=== PATIENT | female | born 1985 | race Caucasian/White ===

== ENCOUNTER 2024-02-14 15:16 | Inpatient (IN) | payer BC ==
[~2024-02-14] VITALS: Ht 167.6 cm; Wt 64.0 kg
[2024-02-14] MEDS: normal saline 1000ml 1,000 ML IV SCH (17:10)
[2024-02-14] MEDS ORDERED: magnesium sulf-water 4G/100mL 100 ML IV PRN (17:10)
[2024-02-14] MEDS ORDERED: potassium Cl 40MEQ/1/2NS 520ml 520 ML IV PRN (17:10)
[2024-02-14] MEDS ORDERED: potassium Cl 20 mEq SR tablet PO PRN ×2 (17:10)
[2024-02-14] MEDS ORDERED: ondansetron/PF 4mg/2ml inj IV PRN (17:10)
[2024-02-14] MEDS ORDERED: acetaminophen 325mg tablet PO PRN (17:10)
[2024-02-14] MEDS ORDERED: magnesium Cl slow-release 64mg tablet PO PRN (17:10)
[2024-02-14] MEDS ORDERED: magnesium sulf-water 2g/50mL 50 ML IV PRN (17:10)
[2024-02-14] MEDS ORDERED: HYDROcodone/acetaminophen 5mg/325mg tablet PO PRN (17:10)
[2024-02-14] MEDS: K and/or MAG REPLACEMENT MC SCH (19:10)
[2024-02-14] MEDS ORDERED: NO HOME MEDS (20:47)
[2024-02-15 03:33] LABS: BASOPHILS % (AUTO) 0.4 % (0-1); EOSINOPHILS # (AUTO) 0.2 X10'3 (0-0.9); EOSINOPHILS % (AUTO) 3.1 % (0-6); HEMATOCRIT 39.9 % (35.0-45.0); HEMOGLOBIN 13.2 g/dl (12.0-16.0); LYMPHOCYTES # (AUTO) 2.4 X10'3 (1.1-4.8); LYMPHOCYTES % (AUTO) 33.3 % (21-51); MEAN CORPUSCULAR HEMOGLOBIN 31.2 PG (27.0-31.0); MEAN CORPUSCULAR VOLUME 94.7 FL (78-98); MEAN PLATELET VOLUME 7.3 FL (7.4-10.4); MONOCYTES # (AUTO) 0.5 X10'3 (0-0.9); MONOCYTES % (AUTO) 6.6 % (2-12); NEUTROPHILS # (AUTO) 4.2 X10'3 (1.8-7.7); NEUTROPHILS % (AUTO) 56.6 % (42-75); PLATELET COUNT 274 X10'3 (140-440); RED BLOOD COUNT 4.21 X10'6 (4.20-5.60); RED CELL DISTRIBUTION WIDTH 13.6 % (11.5-14.5); WHITE BLOOD COUNT 7.4 X10'3 (4.5-11.0)
[2024-02-15 03:55] LABS: ALBUMIN 3.4 G/DL (3.4-5.0); ALBUMIN/GLOBULIN RATIO 0.9 (1.1-1.5); ALKALINE PHOSPHATASE 122 IU/L (46-116); ANION GAP 7 (8-16); ASPARTATE AMINO TRANSFERASE 851 U/L (10-37); BILIRUBIN,TOTAL 2.1 MG/DL (0.1-1.0); BLOOD UREA NITROGEN 15 MG/DL (7-18); BUN/CREATININE RATIO 21.1 (10.0-20.0); CALCIUM 8.2 MG/DL (8.5-10.1); CHLORIDE 106 MMOL/L (99-107); CREATININE 0.71 MG/DL (0.40-0.90); GLUCOSE 79 MG/DL (70-104); MAGNESIUM 2.2 MG/DL (1.5-2.4); POTASSIUM 3.9 MMOL/L (3.5-5.1); SODIUM 140 MMOL/L (135-145); TOTAL CARBON DIOXIDE 26.8 MMOL/L (24-32); TOTAL PROTEIN 7.2 G/DL (6.4-8.2); eCRCL 102 ML/MIN; eGFR > 90 ML/MIN
[2024-02-15 03:56] LABS: ALANINE AMINOTRANSFERASE 1485 U/L (12-78)
[2024-02-15 07:20] VITALS: BP 109/72; PULSE 60; RESP 19; TEMP 98.3; O2SAT 98
[2024-02-15 08:00] VITALS: RESP 16; O2SAT 99
[2024-02-15 10:00] VITALS: BP 109/75; PULSE 73; RESP 16; TEMP 98.5; O2SAT 99
[2024-02-15] MEDS: morphine 2 MG/ML inj. syringe IV PRN (11:34)
[2024-02-15 18:00] VITALS: BP 112/72; PULSE 74; RESP 16; TEMP 98.1; O2SAT 100
[2024-02-15 20:00] VITALS: RESP 16; O2SAT 100
[2024-02-15] MEDS ORDERED: ibuprofen 200mg tablet PO PRN (20:25)
[2024-02-15 22:00] VITALS: BP 99/60; PULSE 69; RESP 16; TEMP 97.5; O2SAT 99
[2024-02-15] MEDS: diatr meglu/diatrizoate 30ml oral sol.-(3 dose) bottle PO SCH (22:09)
[2024-02-16] VITALS (16 sets, daily range): BP systolic 99–135; BP diastolic 60–99; PULSE 64–87; RESP 14–20; TEMP 97.1–98.4; O2SAT 66–100
[2024-02-16 07:52] LABS: ALANINE AMINOTRANSFERASE 836 U/L (12-78); ALBUMIN 3.3 G/DL (3.4-5.0); ALBUMIN/GLOBULIN RATIO 0.9 (1.1-1.5); ALKALINE PHOSPHATASE 100 IU/L (46-116); ASPARTATE AMINO TRANSFERASE 253 U/L (10-37); BILIRUBIN,DIRECT 0.3 MG/DL (0-0.3); BILIRUBIN,TOTAL 1.2 MG/DL (0.1-1.0); TOTAL PROTEIN 7.1 G/DL (6.4-8.2)
[2024-02-16] MEDS ORDERED: iohexol 300mg/ml 100ml inj. ONE (09:50)
[2024-02-16] MEDS ORDERED: BUPIVAcaine 2.5mg/ml inj 50ml vial (contains preservative) ONE (18:33)
[2024-02-16] MEDS ORDERED: dextrose 50%-water 50ml dispensing syringe IV PRN (19:20)
[2024-02-16] MEDS: dextrose 50%-water 50ml dispensing syringe IV PRN (19:26)
[2024-02-16] MEDS ORDERED: morphine 2 MG/ML inj. syringe IV PRN (20:45)
[2024-02-16] MEDS ORDERED: ondansetron/PF 4mg/2ml inj IV PRN ×2 (20:45→22:05)
[2024-02-16] MEDS: ringers solution, lacted 1,000 ML IV SCH (20:45)
[2024-02-16] MEDS ORDERED: morphine 4 MG/ML inj SYRINge IV PRN (20:45)
[2024-02-16] MEDS ORDERED: meperidine/PF 25mg/ml syringe IV PRN (20:45)
[2024-02-16] MEDS ORDERED: labetalol 20mg/4ml (5mg/ml) syringe IV PRN (20:45)
[2024-02-16] MEDS ORDERED: proCHLORperazine 10 MG/2 ml inj IV PRN (20:45)
[2024-02-16] MEDS ORDERED: ceFAZolin 2gm in dextrose, iso 2,000 MG/50 ML BAG IV ONE (20:53)
[2024-02-16] MEDS ORDERED: fentaNYL/PF 50MCG/1 ML 2ML syringe ONE (20:57)
[2024-02-16] MEDS ORDERED: midazolam 1 mg/ML 2ml injection ONE (20:57)
[2024-02-16] MEDS ORDERED: propofol inj 20 ML IV ONE (21:00)
[2024-02-16] MEDS ORDERED: rocuronium 10mg/ml inj IV ONE (21:07)
[2024-02-16] MEDS ORDERED: dexamethasone sod phosphate 4mg/ml inj. ONE (21:12)
[2024-02-16] MEDS ORDERED: ondansetron/PF 4mg/2ml inj ONE (21:42)
[2024-02-16] MEDS ORDERED: acetaminophen 1,000mg/100ml IV 100 ML IV ONE (21:43)
[2024-02-16] MEDS: BUPIVAcaine 2.5mg/ml inj 50ml vial (contains preservative) IJ ONE (21:53)
[2024-02-16] MEDS ORDERED: sugammadex 200mg/2ml injection IV ONE (21:54)
[2024-02-16] MEDS ORDERED: naloxone 0.4 mg/ml inj IV PRN (22:05)
[2024-02-16] MEDS: meperidine/PF 25mg/ml syringe IV PRN ×2 (22:12→22:42)
[2024-02-16] MEDS: potassium CL 20mEq in D5-1/2NS 1,000 ML IV SCH (22:34)
[2024-02-16] MEDS: ketorolac trometh 15mg/ml vial 15 MG/ML ML IV PRN (22:40)
[2024-02-17] VITALS (13 sets, daily range): BP systolic 96–113; BP diastolic 63–75; PULSE 69–81; RESP 14–18; TEMP 97.5–98.6; O2SAT 97–98
[2024-02-17] MEDS: traMADol 50MG tablet PO ONE (01:37)
[2024-02-17] MEDS: ceFAZolin/D5W- 1GM premix 50 ML IV SCH (03:49)
[2024-02-17] MEDS: acetaminophen 325mg tablet PO PRN (05:45)
[2024-02-17 10:53] LABS: BASOPHILS % (AUTO) 0.2 % (0-1); EOSINOPHILS % (AUTO) 0 % (0-6); HEMATOCRIT 37.9 % (35.0-45.0); HEMOGLOBIN 12.8 g/dl (12.0-16.0); LYMPHOCYTES # (AUTO) 1.4 X10'3 (1.1-4.8); LYMPHOCYTES % (AUTO) 12.8 % (21-51); MEAN CORPUSCULAR HEMOGLOBIN 31.9 PG (27.0-31.0); MEAN CORPUSCULAR HGB CONC 33.8 g/dL (33.0-36.5); MEAN CORPUSCULAR VOLUME 94.4 FL (78-98); MEAN PLATELET VOLUME 7.5 FL (7.4-10.4); MONOCYTES # (AUTO) 0.7 X10'3 (0-0.9); MONOCYTES % (AUTO) 6.1 % (2-12); NEUTROPHILS # (AUTO) 8.7 X10'3 (1.8-7.7); NEUTROPHILS % (AUTO) 80.9 % (42-75); PLATELET COUNT 320 X10'3 (140-440); RED BLOOD COUNT 4.01 X10'6 (4.20-5.60); RED CELL DISTRIBUTION WIDTH 12.8 % (11.5-14.5); WHITE BLOOD COUNT 10.8 X10'3 (4.5-11.0)
[2024-02-17 11:15] LABS: ALANINE AMINOTRANSFERASE 487 U/L (12-78); ALBUMIN 3.1 G/DL (3.4-5.0); ALBUMIN/GLOBULIN RATIO 0.9 (1.1-1.5); ALKALINE PHOSPHATASE 87 IU/L (46-116); ANION GAP 9 (8-16); ASPARTATE AMINO TRANSFERASE 83 U/L (10-37); BILIRUBIN,TOTAL 0.5 MG/DL (0.1-1.0); BLOOD UREA NITROGEN 4 MG/DL (7-18); BUN/CREATININE RATIO 5.6 (10.0-20.0); CALCIUM 8.1 MG/DL (8.5-10.1); CHLORIDE 103 MMOL/L (99-107); CREATININE 0.71 MG/DL (0.40-0.90); GLUCOSE 225 MG/DL (70-104); POTASSIUM 3.8 MMOL/L (3.5-5.1); SODIUM 135 MMOL/L (135-145); TOTAL CARBON DIOXIDE 23.2 MMOL/L (24-32); TOTAL PROTEIN 6.7 G/DL (6.4-8.2); eCRCL 102 ML/MIN; eGFR > 90 ML/MIN
[2024-02-17] MEDS ORDERED: TRAM50TA2 PO (12:11)
[2024-02-17] MEDS: HYDROcodone/acetaminophen 5mg/325mg tablet PO PRN (14:53)
[2024-02-18 05:23] LABS: HBSAG SCREEN Negative (Negative); HEP B SURF AB Non Reactive (.); HEPATITIS C VIRUS ANTIBODY Non Reactive (Non Reactive)
== END 2024-02-17 16:05 | disposition home or self-care (01) | DRG 419 ==
LOC: ER 15:17 → ED HOLD 17:19 → ORTHO 4S 02-15 07:13
PROVIDERS: ADMIT Internal Medicine; ATTEND Internal Medicine
PROC: 8E0W4CZ Robotic Assisted Procedure of Trunk Region, Percutaneous Endoscopic Approach (ICD-10-PCS; 2024-02-16)
PROC: BW211ZZ Computerized Tomography (CT Scan) of Abdomen and Pelvis using Low Osmolar Contrast (ICD-10-PCS; 2024-02-16)
PROC: 0FT44ZZ Resection of Gallbladder, Percutaneous Endoscopic Approach (ICD-10-PCS; principal; 2024-02-16 20:53)
DX: K80.70 Calculus of gallbladder and bile duct without cholecystitis without obstruction (principal); R74.01 Elevation of levels of liver transaminase levels; E80.6 Other disorders of bilirubin metabolism; K75.9 Inflammatory liver disease, unspecified
CPT/HCPCS: 99285; Z7506; Z7508; 36415; 74181; 80053; 80076; 82948; 83735; 85025; 86706; 86803; 87340; 87522; A4215; A4618; A7000; G0378; J0131; J0690; J1100; J1885; J2175; J2250; J2270; J2405; J2704; J3010; J3480; J3490; J7030; J7120; Q9963; Q9967